=== PATIENT | male | born 1940 | race African-American/Black ===

== ENCOUNTER 2017-01-12 08:01 | Emergency (ER) ==
--- NOTE | 2017-01-12 08:37 | PROVIDER DOCUMENTATION ---
HPI-Abdominal Pain/GI Problem - General Chief Complaint: B/P Problems Stated Complaint: NAUSEA/VOMITING/CHEST PAIN Time Seen by Provider: 01/12/17 08:31 Source: patient Allergies/Adverse Reactions: Patient Allergies Allergy/AdvReac Type Severity Reaction Status Date / Time No Known Allergies Allergy Verified 01/12/17 08:13 Home Medications: Home Medication List Medication Instructions Recorded Confirmed Last Taken Type Hum Insulin NPH/Reg Insulin Hm 50 unit SQ BID 08/25/12 09/15/16 09/14/16 11:00 History [Novolin 70-30 100 Unit/ml Vial] 50 Lisinopril 20 mg PO EVERY OTHER DAY 08/25/12 09/15/16 09/14/16 10:00 History 20 PRAVAstatin [Pravachol] 40 mg PO QHS 08/25/12 09/15/16 09/14/16 22:30 History 40 Nitroglycerin [Nitroglycerin 1 spray SL Q5M PRN PRN #1 bottle 04/19/16 09/15/16 06/21/16 19:00 Rx Lingual [place]] 1 SPRAY Metformin [Glucophage] 500 mg PO BID 06/22/16 09/15/16 09/14/16 22:30 History 500 Hydroxyzine Pamoate [Vistaril] 25 mg PO BID #20 capsule 07/28/16 09/15/16 13:00 Rx 25 Terazosin HCl 4 mg PO BID 07/28/16 09/15/16 09/14/16 13:00 History 4 Acetaminophen with Codeine 1 each PO Q6H PRN PRN #14 tablet 09/11/16 09/15/16 Unknown Rx [Tylenol with Codeine #3 Tablet] Ciprofloxacin HCl [Cipro] 500 mg PO BID #14 tablet 09/15/16 Unknown Rx Hydrocodone/Acetaminophen [[place] 1 each PO Q6H PRN #20 tablet 09/15/16 Unknown Rx 7.5-325 Tablet] Sennosides/Docusate Sodium 1 each PO BID #20 tablet 09/15/16 Unknown Rx [Pericolace] Metformin [Glucophage] 500 mg PO BID CC #60 tablet 01/12/17 Unknown Rx - History of Present Illness-ABD Nature of Presenting Problems: t2dm out of meds x 2 weeks nocturia 10x no dry mouth Abdominal Pain Onset Location: reports: other (penis end hurts) Pain Radiation: reports: no radiation Quality of Pain: reports: burning Onset/Duration: reports: other (2 weeks) Timing: reports: still present Activities at Onset: reports: none Associated Symptoms: reports: nausea, weakness. denies: constipation, cough, diarrhea, fever/chills, vomiting Last BM: this morning Dark Stools Present?: reports: none noticed Rectal Bleeding: reports: none # of Diarrhea Episodes: 0 Rectal Pain: reports: none # of Vomiting Episodes: 0 Bruising or Bleeding Gums?: No Similar Symptoms Previously?: No Recently seen or treated by another doctor?: No Review of Systems - Adult - REVIEW OF SYSTEMS - ADULT Constitutional: reports: night sweats. denies: chills, fever Eyes: reports: blurred vision. denies: dry eyes, eye pain, redness Ears, Nose, Mouth & Throat: reports: no symptoms reported Cardiovascular: reports: chest pain. denies: edema Respiratory: denies: cough, hemoptysis, pleurisy, shortness of breath Gastrointestinal: reports: nausea. denies: abdominal pain, constipation, diarrhea, vomiting Genitourinary: reports: frequency, incontinence. denies: dysuria, hematuria Musculoskeletal: reports: no symptoms reported Integumentary: reports: no symptoms reported Neurological: denies: ataxia, dizziness/vertigo, headache/migraines Endocrine: reports: increased thirst, polyuria Hematologic/Lymphatic: denies: blood clots, easy bruising, low blood count Allergic/Immunologic: denies: allergic rhinitis, asthma, eczema Past History - Adult - PAST MEDICAL HISTORY-ADULT Review of Records: reports: Nursing Assessment Review, Medications Reviewed, Social history reviewed & non-contributory. Major Childhood Illnesses: reports: denies history Cardiovascular: reports: A-Fib, CHF, HTN, hyperlipidemia Respiratory: reports: denies history Gastrointestinal: reports: denies history Obstetrical/Gynecological: reports: denies history Genitourinary: reports: denies history Musculoskeletal: reports: denies history Neurological: reports: denies history Endocrine/Immune: reports: Diabetes Other Conditions: reports: denies history - PRIOR SURGERIES/PROCEDURES Surgical/Procedure History: reports: appendectomy, hernia repair, orthopedic ( extremity) - IMMUNIZATION STATUS Childhood Immunizations: See Nurse Assessment Flu Vaccine: See Nurse Assessment - FAMILY HISTORY Family History: reviewed, not pertinent Physical Exam-General - PHYSICAL EXAM-ADULT Initial Vital Signs Reviewed: Yes - CONSTITUTIONAL General Appearance: appears well, alert - EYES Eyes: PERRL/EOMI, pink conjunctivae - HEAD, EARS, NOSE, MOUTH & THROAT HENMT: normocephalic/atraumatic, moist mucous membranes, normal ENT inspection, TMs normal, pharynx normal - NECK Neck: supple - RESPIRATORY Respiratory: lungs clear, no respiratory distress, no accessory muscle use - CARDIOVASCULAR Cardiovascular: regular rate, rhythm. negative: bradycardia, tachycardia - GASTROINTESTINAL (ABDOMEN) Abdominal Exam: soft - LYMPHATIC Lymphatic: no adenopathy - MUSCULOSKELETAL Back Exam: normal inspection Extremity: normal range of motion, non-tender - SKIN Integumentary: normal color, normal turgor - NEUROLOGIC Neurologic: grossly normal Departure - Departure Time of Disposition Order: 09:55 DIAGNOSIS: Noncompliance T2DM (type 2 diabetes mellitus) Qualifiers: Diabetes mellitus complication status: with hyperglycemia Disposition: HOME 01 Certified Medical Emergency: Emergent Condition: Stable Prescriptions: Metformin [Glucophage] 500 mg PO BID CC #60 tablet
[2017-01-12 08:45] LABS: MANUAL DIFF NEEDED? NO
[2017-01-12 08:54] LABS: BASO% 0.5 % (0.0-0.8); EOS# 0.11 X1000 (0.0-0.7); EOS% 1.8 % (0.0-10.0); HEMATOCRIT 40.7 % (42.0-52.0); HEMOGLOBIN 13.7 g/dL (14.0-18.0); IMM GRAN# 0.01 X1000 (0.0-0.04); IMM GRAN% 0.2 % (0.0-0.5); LYMPH# 3.25 X1000 (1.2-3.4); LYMPH% 53.6 % (20.5-51.1); MCH 28.8 PG (27-31); MCHC 33.7 g/dL (33-37); MCV 85.7 FL (81-99); MONO# 0.41 X1000 (0.11-0.59); MONO% 6.8 % (1.7-9.3); MPV 10.8 FL (7.4-10.4); NEUT% 37.1 % (42.2-75.2); PLT 218 X1000 (130-400); RBC 4.75 XMIL (4.7-6.1)
[2017-01-12 09:23] LABS: AGAP 12; ALBUMIN 4.1 g/dL (3.5-5.0); ALKALINE PHOSPHATASE 86 U/L (32-122); BUN 21 mg/dL (8-22); CHLORIDE 99 mmol/L (98-107); CK PROFILE 47 U/L (24-204); COSMO 293; GOT 14 U/L (10-34); GPT 14 U/L (10-44); POTASSIUM 3.9 mmol/L (3.5-5.1); SODIUM 135 mmol/L (136-145); TCO2 24 mmol/L (25-35); TOTAL PROTEIN 7.1 g/dL (6.3-8.3)
--- NOTE | 2017-01-12 09:30 | Diag Imaging Result Document ---
PROCEDURE NAME: FLAT/UPRIGHT ABD/1 VIEW CHEST - 01/12/2017 FLAT AND UPRIGHT ABDOMEN: FINDINGS: There is no evidence of bowel obstruction, organomegaly, or mass. IMPRESSION: No evidence of acute disease. PA CHEST: FINDINGS: There is no evidence of acute cardiac or pulmonary disease. The aorta is very tortuous. The appearance of the chest has not changed significantly since 06/22/2016. 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
--- NOTE | 2017-01-12 09:35 | EKG Report ---
Test Performed on : 01/12/2017 08:15:58 AM Test Reason : emboli Blood Pressure : / mmHG Vent. Rate : 085 BPM Atrial Rate : 085 BPM P-R Int : 196 ms QRS Dur : 078 ms QT Int : 394 ms P-R-T Axes : 034 003 037 degrees QTc Int : 468 ms Normal sinus rhythm. Normal ECG When compared with ECG of 22-JUN-2016 07:19, No significant change was found Unconfirmed Result
[2017-01-12] MEDS ORDERED: HUMULIN 70/30 (PARKWAY) ONE (09:59)
[2017-01-12] MEDS ORDERED: HUMULIN 70/30 (PARKWAY) SUBQ ONE (10:21)
[2017-01-12 10:26] VITALS: BP 126/076
== END 2017-01-12 10:24 | disposition home or self-care (01) ==
LOC: P.ED 08:01
DX: E11.65 Type 2 diabetes mellitus with hyperglycemia (principal); Z91.14 Patient's other noncompliance with medication regimen; R35.1 Nocturia; R11.0 Nausea; R53.1 Weakness; N48.89 Other specified disorders of penis; R07.9 Chest pain, unspecified; R61 Generalized hyperhidrosis; Z79.899 Other long term (current) drug therapy; H53.8 Other visual disturbances; R35.0 Frequency of micturition; R32 Unspecified urinary incontinence; R63.1 Polydipsia; R35.8 Other polyuria; I48.91 Unspecified atrial fibrillation; I50.9 Heart failure, unspecified; I10 Essential (primary) hypertension; E78.5 Hyperlipidemia, unspecified; Z79.4 Long term (current) use of insulin
CPT/HCPCS: 74022; 80053; 82550; 82948; 84484; 85025; 93005; 96372; J1815